=== PATIENT | female | born 1980 | race Caucasian/White ===

== ENCOUNTER 2021-11-23 12:41 | Outpatient (CLI) | payer BC, SELFPAY | END 2021-11-23 12:42 | disposition home or self-care (01) | PROVIDERS: Visit Provider Obstetrics & Gynecology | DX: R53.83 Other fatigue (principal); Z39.2 Encounter for routine postpartum follow-up | CPT/HCPCS: 84443; 87624; 88175 ==

== ENCOUNTER 2022-05-30 13:59 | Outpatient (CLI) | payer BC, SELFPAY ==
--- NOTE | 2022-05-30 14:00 | CRLHL7_ITS ---
For Patients: As a result of the Century Cures Act, medical imaging exams and procedure reports are released immediately into your electronic medical record. You may view this report before your referring provider. If you have questions, please contact your health care provider. INDICATION: First trimester scan, establish dates. COMPARISON: None. TECHNIQUE: Real-time guevara-scale imaging of the pelvis was performed. FINDINGS: Sonographic imaging demonstrates a single living intrauterine gestation. The embryo demonstrates a regular cardiac rate measuring 159 beats per minute. The embryo`s crown-rump length measurement of 2.0 cm corresponds to a gestational age of 8 weeks 4 days with a sonographic due date of 01/05/2023. There is a normal-appearing yolk sac. There are no gross abnormalities noted within the embryo at this early state of development. The gestational sac has a normal appearance. There is a 1.4 x 1.0 x 2.1 cm perigestational hemorrhage. The amount of fluid within the sac appears appropriate for gestational age. The cervix is closed. The myometrium appears normal. The left ovary is normal. The right ovary is not visualized. There are no suspicious fluid collections noted in the cul-de-sac. IMPRESSION: Single living intrauterine with sonographic gestational age 8 weeks 4 days and sonographic due date 01/05/2023. Lower uterine segment subchorionic hemorrhage measuring 1.4 x 1.0 x 2.1 cm. Dictated by Aaron St MD @ 05/30/2022 3:12:29 PM (Electronically Signed)
== END 2022-05-30 14:00 | disposition home or self-care (01) ==
LOC: US 14:00
PROVIDERS: Visit Provider Registered Nurse
DX: O09.521 Supervision of elderly multigravida, first trimester (principal); Z3A.09 9 weeks gestation of pregnancy
CPT/HCPCS: 76817; 86592; 86703; 86762; 86787; 86803; 86850; 86900; 86901; 87086; 87340

== ENCOUNTER 2022-06-29 14:59 | Outpatient (CLI) | payer BC, SELFPAY ==
--- NOTE | 2022-06-29 16:00 | CRLHL7_ITS ---
For Patients: As a result of the Century Cures Act, medical imaging exams and procedure reports are released immediately into your electronic medical record. You may view this report before your referring provider. If you have questions, please contact your health care provider. INDICATION: [id number], check viability COMPARISON: 05/30/2022 TECHNIQUE: Real-time guevara-scale imaging of the pelvis was performed. FINDINGS: pole measures 2.1 cm, measuring 8 weeks 5 days. No heart tones. Gestational sac appears somewhat irregular. Curvilinear subchorionic hemorrhage noted inferiorly measuring 4.0 x 0.5 x 3.8 cm. No yolk sac. No ectopic . IMPRESSION: Intrauterine demise. Dictated by Aaron St MD @ 06/30/2022 12:11:52 PM (Electronically Signed)
== END 2022-06-29 15:00 | disposition home or self-care (01) ==
LOC: US 15:00
PROVIDERS: Visit Provider Obstetrics & Gynecology
DX: O20.9 Hemorrhage in early pregnancy, unspecified (principal)
CPT/HCPCS: 76801

== ENCOUNTER 2022-07-06 15:43 | Outpatient (CLI) | payer BC, SELFPAY ==
--- NOTE | 2022-07-06 16:00 | CRLHL7_ITS ---
For Patients: As a result of the Cures Act, medical imaging exams and procedure reports are released immediately into your electronic medical record. You may view this report before your referring provider. If you have questions, please contact your health care provider. INDICATION: Known miscarriage. TECHNIQUE: Ultrasound OB pelvis transabdominal and transvaginal. Real-time guevara-scale imaging of the pelvis was performed. COMPARISON: June 29, 2022. FINDINGS: Re-demonstration of intrauterine gestational sac measuring 4.5 centimeters with pole with crown-rump length measuring 1.9 centimeters. Again, no heart tones. The ovaries are not visualized. There are no suspicious fluid collections noted in the cul-de-sac. IMPRESSION: Re-demonstration of intrauterine gestational sac measuring 4.5 centimeters with pole with crown-rump length measuring 1.9 centimeters. Again, no heart tones consistent with history of known miscarriage. Dictated by Jose Diggs MD @ 07/06/2022 5:48:19 PM (Electronically Signed)
== END 2022-07-06 15:44 | disposition home or self-care (01) ==
LOC: US 15:44
PROVIDERS: Visit Provider Obstetrics & Gynecology
DX: O02.1 Missed abortion (principal)
CPT/HCPCS: 76817

== ENCOUNTER 2022-07-07 06:29 | Day surgery (SDC) | payer BC, SELFPAY ==
[2022-07-07] VITALS (7 sets, daily range): BP systolic 91–122; BP diastolic 58–81; PULSE 63–83; RESP 16–18; TEMP 36.4–36.6; O2SAT 96–100; BMI 36.9
[2022-07-07] MEDS: LACTATED RINGERS 1000 ML 1,000 ML 100 ML IV (06:50)
[2022-07-07] MEDS: SODIUM CHLORIDE 0.9 % (FLUSH) 10 ML SYRINGE IVF (06:50)
[2022-07-07 07:07] LABS: SARS Antigen* negative (Negative)
[2022-07-07] MEDS: DOXYCYCLINE HYCLATE 100 MG CAPSULE 200 MG PO (07:24)
[2022-07-07] MEDS: miSOPROStoL 800 MCG/4 TABLET PR (08:13)
--- NOTE | 2022-07-07 08:35 | W.ANESCHARGE ---
Anesthesia Charges Start Date/Time Anesthesia Start Date: 07/07/22 Anesthesia Start Time: 07:33 Stop Date/Time Anesthesia Stop Date: 07/07/22 Anesthesia Stop Time: 08:35
--- NOTE | 2022-07-07 09:11 | W.PM.GYNPROC ---
Procedure Note Date Seen: 07/07/22 Procedure Details: Preoperative diagnosis: Missed at 8 weeks by CRL Postoperative diagnosis: Same Procedure: Suction uterine curettage Surgeon: Miranda Duenas MD Anesthesia: Monitored anesthesia care IV fluids: 600 mL crystalloid EBL: 50 mL Findings: 1. Exam under anesthesia revealed a mobile, retroverted uterus that was consistent in size with 8 weeks' gestation. There are no palpable adnexal masses. 2. Moderate amount of products of conception returned with suction curettage. 3. Ultrasound performed at end of procedure revealed uniform appearance to endometrial stripe with no obvious retained products Complications: None Procedure in detail: Patient was taken to the operating with IV running. She had received a single oral dose of doxycycline in preoperative prophylaxis. She was placed in dorsal lithotomy position. Monitored anesthesia care was administered. She was prepped and draped in the usual sterile fashion. Her bladder was straight catheterized. Exam under anesthesia was performed for the above-noted findings. Speculum was inserted. Cervix was grasped along its anterior lip with an Allis clamp. The cervix was already dilated and easily accomodated a size 10 serially Hegar. A size 10 rigid suction cannula was then passed through the cervix to the uterine fundus. Suction was applied, and the suction cannula was withdrawn along the path of insertion. This was repeated several more times, with obvious return of products of conception. Ultrasound then performed for reassuring findings as above. Procedure was deemed complete. The Allis clamp was removed from the anterior lip the cervix, and hemostasis was noted. The speculum was then removed from the vagina. Given patient's history of hemorrhage, 800 mcg was placed in the rectum after the procedure as a preventative measure. Patient tolerated procedure well and was taken recovery area in stable condition.
[2022-07-07] MEDS: IBUPROFEN 600 MG TABLET PO (09:22)
[2022-07-07] MEDS: HYDROCODONE/ACETAMIN 7.5-325 TABLET 1 TAB PO (09:47)
--- NOTE | 2022-07-07 10:43 | W.ANESCHARGE ---
Anesthesia Charges Start Date/Time Anesthesia Start Date: 07/07/22 Anesthesia Start Time: 07:33 Stop Date/Time Anesthesia Stop Date: 07/07/22 Anesthesia Stop Time: 08:35
== END 2022-07-07 10:39 | disposition home or self-care (01) ==
PROVIDERS: Anesthesiology; Visit Provider Obstetrics & Gynecology
PROC: (CPT 59820; principal; 2022-07-07 07:30)
DX: O02.1 Missed abortion (principal)
CPT/HCPCS: 59820; 00940; 01965; 36415; 76857; 76998; 81025; 86850; 86900; 86901; 87426; 88305; A9270; J2250; J2405; J2704; J3010; J7120

== ENCOUNTER 2022-12-07 08:00 | Outpatient (RCR) | payer BC, SELFPAY | END 2023-04-06 23:59 | disposition home or self-care (01) | PROVIDERS: PCP Obstetrics & Gynecology; Visit Provider Obstetrics & Gynecology | DX: N39.3 Stress incontinence (female) (male) (principal); M62.08 Separation of muscle (nontraumatic), other site; Z51.89 Encounter for other specified aftercare | CPT/HCPCS: 97110; 97112; 97140; 97162; 97163; 97535 ==